=== PATIENT | male | born 1995 | race Caucasian/White ===

== ENCOUNTER 2017-02-19 06:18 | Day surgery (SDC) | payer OTHER ==
[2017-02-16 17:51] VITALS: BMI 25.0
[2017-02-19] MEDS ORDERED: BUPIVACAINE HCL/PF 0.5% (5MG/ML) 10 ML VIAL ONE (07:11)
[2017-02-19] MEDS ORDERED: LIDOCAINE 1%/EPI 1:100000 (20 ML MULTI DOSE VIAL) ONE (07:11)
[2017-02-19] MEDS ORDERED: BUPIVACAINE HCL/PF 2.5 MG/ML - 30 ML VIAL IJ ONE (07:11)
[2017-02-19] MEDS ORDERED: ceFAZolin SODIUM 1 GM VIAL ONE (07:33)
[2017-02-19] MEDS ORDERED: DEXAMETHASONE SOD PHOSPHATE 4 MG/1 ML VIAL ONE (07:33)
[2017-02-19] MEDS ORDERED: ONDANSETRON 4 MG/2 ML VIAL ONE (07:33)
[2017-02-19] MEDS ORDERED: LIDOCAINE HCL 2% JELLY (5 ML/TUBE) ONE (07:33)
[2017-02-19] MEDS ORDERED: PROPOFOL 20 ML ONE ×2 (07:33)
[2017-02-19] MEDS ORDERED: MIDAZOLAM HCL 2 MG/2 ML SINGLE DOSE VIAL ONE (07:33)
[2017-02-19] MEDS ORDERED: ROCURONIUM BROMIDE 50 MG/5 ML VIAL ONE (07:59)
[2017-02-19] MEDS ORDERED: LIDOCAINE HCL/PF 2% SDV 5ML VIAL ONE (08:00)
[2017-02-19] MEDS ORDERED: NEOSTIGMINE METHYLSULFATE 0.5 MG/ML - 10 ML MDV ONE (08:53)
[2017-02-19] MEDS ORDERED: oxyCODONE HCL 5 MG TABLET PO PRN ×4 (09:33→09:41)
[2017-02-19] MEDS ORDERED: ONDANSETRON 4 MG/2 ML VIAL IVPB PRN (09:33)
--- NOTE | 2017-02-19 09:37 | OP ---
Operative Note - Note: Operative Date: 02/19/17 Pre-Operative Diagnosis: hemangioma left thigh Operation: removal hemangioma left thigh Post-Operative Diagnosis: Same as Pre-op Surgeon: Jaziel Kimball Anesthesia: General Specimens Removed: hemangioma left thigh
[2017-02-19] MEDS ORDERED: ONDANSETRON 4 MG/2 ML VIAL IVPUSH PRN (09:41)
[2017-02-19] MEDS ORDERED: PROMETHAZINE HCL 25 MG/1 ML VIAL IVPUSH PRN (09:41)
[2017-02-19] MEDS ORDERED: LACTATED RINGERS SOLUTION 1,000 ML IV SCH (09:45)
--- NOTE | 2017-02-19 10:44 | OP ---
DATE OF OPERATION: 02/19/2017 PROCEDURE: Left thigh mass lesion excision with primary closure. ATTENDING SURGEON: Jaziel Kimball MD ROCK DUSTER: None. ANESTHESIA: General endotracheal anesthesia. PREOPERATIVE DIAGNOSIS: Hemangioma to posterior left thigh. POSTOPERATIVE DIAGNOSIS: Hemangioma to posterior left thigh. DESCRIPTION OF PROCEDURE: The patient was marked in the holding area awake and aware of incisions and resulting scars. Brought to the operating room. He is given a gram of Ancef preoperatively. Sequential compression stockings and VITO hose are applied. He is given general anesthesia and then positioned carefully by surgical and anesthesia team in the prone position for access to the posterior lesion. The patient is then prepped and draped in standard surgical fashion. A time-out is called. Patient, procedure, side, site are verified. A total of 10 mL of 1% lidocaine with 1:100,000 epinephrine is injected locally to the operative tissues. Incision was made directly over the lesion where immediately just past the dermis the lesion was entered and decompressed of stagnant blood. That was within the lesion. Once this was fully decompressed, there was no further bleeding. A clear dissection plane is at the bedside identified between the surrounding dry creek fat and the hemangioma lesion. This dissection plane is carried with low-power Bovie cautery, and the lesion is excised en bloc from the surrounding fat. It is entirely subcutaneous. It is 5 cm in diameter. The hemostasis was meticulously achieved. The entire dissection is superficial to the investing muscular fascia. After the hemostasis was achieved, the wound was copiously irrigated with normal saline. The skin flaps are assessed to be viable, and a deep closure of the space is performed with series of interrupted, buried 3-0 Vicryl suture from the subdermis to the deep fat effectively and fully closing the space with quilting sutures leaving no reason to place a surgical drain. Closure of the skin is then performed with a series of interrupted buried deep dermal 3-0 Monocryl sutures followed by a running subcuticular 3-0 Monocryl suture. Dressing is applied with full length 1/2 inch Steri-Strips, 4 x 4, and Hypafix tape. The patient is then returned to a supine position, woken from anesthesia, extubated, and transferred to recovery without complication. Bozena CASTANEDA/[id number]
[2017-02-19 12:21] VITALS: BP 123/71; PULSE 67; TEMP 98
--- NOTE | 2017-02-21 15:42 | PATH ---
Surgical Pathology Report Patient Name: OTTONIEL DUBOIS [facility]. Rec. #: [id number] /Age/Gender: 1995 (Age: 22) / M Account: [id number] Location: [facility] Taken: 02/19/2017 Received: 02/19/2017 Reported: 02/21/2017 Physicians: Jaziel Kimball Specimen(s) Received MASS LEFT THIGH Clinical History Hemangioma left thigh Final Diagnosis THIGH, LEFT, MASS, EXCISION: HEMANGIOMA. Electronically Signed Zenia Seay M.D. Gross Description Received in formalin labeled "mass left thigh," is a 5.0 x 5.0 x 1.6 cm unoriented portion of yellow, lobulated adipose tissue. Sectioning reveals focally hemorrhagic fibrous tissue. Environmental Marketing Representative sections are submitted in 4 cassettes. /02/20/2017 saudi02/20/2017
== END 2017-02-19 12:22 | disposition home or self-care (01) ==
LOC: FASU 06:18
PROVIDERS: ATTEND Plastic Surgery
PROC: 0JBM0ZZ Excision of Left Upper Leg Subcutaneous Tissue and Fascia, Open Approach (ICD-10-PCS; principal; 2017-02-19 08:34)
DX: D18.01 Hemangioma of skin and subcutaneous tissue (principal)
CPT/HCPCS: 88305-TC; 94760